=== PATIENT | female | born 1965 | race Caucasian/White ===

== ENCOUNTER 2018-07-30 16:56 | Emergency (ER) | payer BC ==
[~2018-07-30] VITALS: Ht 152.4 cm; Wt 56.7 kg
[2018-07-30 16:56] VITALS: BP_SYST 151
[2018-07-30] MEDS ORDERED: ALPRAZolam 0.25 MG TABLET PO ONE (17:15)
[2018-07-30] MEDS ORDERED: LORazepam 2 MG/ML VIAL (FOR ER USE) IM ONE (17:30)
[2018-07-30 17:50] VITALS: BP_SYST 132
== END 2018-07-30 17:50 | disposition home or self-care (01) ==
LOC: SED 16:59
DX: F41.0 Panic disorder [episodic paroxysmal anxiety] (principal); R03.0 Elevated blood-pressure reading, without diagnosis of hypertension
CPT/HCPCS: 96372; 99284; J2060